=== PATIENT | male | born 1975 | race Caucasian/White ===

== ENCOUNTER 2019-02-19 22:21 | Emergency (ER) | payer OTHER ==
[~2019-02-19] VITALS: Ht 180.3 cm; Wt 154.2 kg
[2019-02-19 23:14] LABS: Basophils # (auto) 0.1 uL; Eosinophils # (auto) 0.1 uL; Eosinophils % (auto) 1.9 % (0.0-7.0); Hematocrit 45.4 % (41.0-53.0); Hemoglobin 15.6 g/dL (13.5-17.5); Lymphocytes # (auto) 0.6 uL; Lymphocytes % (auto) 9.3 % (10.0-50.0); Mean Corpuscular Hemoglobin 28.4 pg (28.0-32.0); Mean Corpuscular Hgb Conc. 34.4 g/dL (32.0-36.0); Mean Corpuscular Volume 82.4 fL (80.0-100.0); Monocytes # (auto) 0.5 uL; Monocytes % (auto) 7.9 % (0.0-12.0); Neutrophils # (auto) 5.4 uL; Neutrophils % (auto) 79.9 % (37.0-80.0); Nucleated Red Blood Cells % 0.1 %; Platelet Count (auto) 203 10^3/uL (140-450); Red Blood Cells 5.51 10^6/uL (4.5-5.90); Red Cell Distribution Width 14.3 % (11.8-14.3); White Blood Cell 6.7 10^3/uL (4.4-10.8)
[2019-02-19 23:33] LABS: Alanine Aminotransferase 39 U/L (16-61); Albumin 3.7 g/dL (3.4-5.0); Anion Gap 6 (5-15); Aspartate Aminotransferase 22 U/L (15-37); BUN/Creatinine Ratio 6.9; Blood Urea Nitrogen 7 mg/dL (7-18); Calcium 8.3 mg/dL (8.5-10.1); Carbon Dioxide 27 mmol/L (21-32); Chloride 101 mmol/L (98-107); GFR African American 103 mL/min; GFR Non-African American 85 mL/min; Glucose 199 mg/dL (74-106); Potassium 3.9 mmol/L (3.5-5.1); Sodium 134 mmol/L (136-145)
[2019-02-19 23:34] LABS: INR 1.13 (0.9-1.15); Partial Thromboplastin Time 31.5 sec (23.64-32.05)
[2019-02-19 23:38] LABS: Alkaline Phosphatase 94 U/L (45-117); Total Protein 7.2 g/dL (6.4-8.2)
[2019-02-20] MEDS ORDERED: ACETAMINOPHEN 500 MG TAB PO ONE (01:00)
[2019-02-20 02:00] VITALS: BP 133/77
== END 2019-02-20 03:35 | disposition home or self-care (01) ==
LOC: ER 22:23
DX: J18.1 Lobar pneumonia, unspecified organism (principal); J01.00 Acute maxillary sinusitis, unspecified; E11.9 Type 2 diabetes mellitus without complications; I10 Essential (primary) hypertension; E78.00 Pure hypercholesterolemia, unspecified
CPT/HCPCS: 36415; 71045; 80053; 82962; 84484; 85025; 85379; 85610; 85730; 87804; 93005